=== PATIENT | female | born 1990 | race Caucasian/White ===

== ENCOUNTER 2017-04-26 09:35 | Inpatient (IN) | payer BC ==
[2017-04-26 10:30] VITALS: BMI 29.6
--- NOTE | 2017-04-26 14:10 | HP ---
Admission [facility] - [facility] Allergies/Adverse Reactions: Allergies Allergy/AdvReac Type Severity Reaction Status Date / Time No Known Allergies Allergy Verified 04/26/17 11:29 - Ebola screening Have you traveled outside of the country in the last 21 days: No Have you had contact with anyone from an Ebola affected area: No Have you been sick,other than usual withdrawal symptoms: No Patient History - Patient Medical History Hx Asthma: No Hx Chronic Obstructive Pulmonary Disease (COPD): No Hx Cardiac Disorders: Yes (Cardiomyopathy) Hx Hypertension: Yes Hx Seizures: Yes (last seizure was 1 months ago.) Hx Diabetes: No Hx Gastrointestinal Disorders: Yes (GERD) Hx Genitourinary Disorders: No Hx Sexually Transmitted Disorders: No Hx Renal Disease (ESRD): No Hx Depression: Yes Hx Suicide Attempt: Yes (Tried to hang herself at age 18 yrs old.) Hx Schizophrenia: No - Patient Surgical History Past Surgical History: Yes Other Surgical History: Tonsillectomy - PPD History Previous Implant?: Yes Documented Results: Negative w/o proof Implanted On Prior [facility] Admission?: No - Reproductive History Last Menstrual Period: 04/06/17 Patient : No - Smoking Cessation Smoking history: Current every day smoker Have you smoked in the past 12 months: Yes Aproximately how many cigarettes per day: 6 Hx Chewing Tobacco Use: No Initiated information on smoking cessation: Yes - Substances Abused Alcohol Route: Oral Frequency: Daily Amount used: 2 pints vodka Age of first use: 15 Date of Last Use: 04/25/17 vicoden/percocets Route: Oral Frequency: Daily Amount used: 2-3 pills Age of first use: 17 Date of Last Use: 04/25/17 Admission Physical Exam [facility] - Vital Signs Vital Signs: Vital Signs - 24 hr 04/26/17 10:24 Temperature 95.4 F L Pulse Rate 76 Respiratory 18 Rate Blood Pressure 109/67 Cleared for Admission [facility] - Detox or Rehab [facility] Level of Care: Medically Managed Detox Regimen/Protocol: Librium [facility] Breath Alcohol Content Breath Alcohol Content: 0 Urine Pregancy Test - Result Urine Test Results: Negative- NO Line Present Urine Drug Screen - Results Drug Screen Negative: No Urine Drug Screen Results: MTD-Methadone, TCA-Tricyclic Antidepress, OXY- Oxycodone
--- NOTE | 2017-04-26 15:17 | HP ---
CIWA Score - CIWA Score Nausea/Vomitin-No Nausea/No Vomiting Muscle Tremors: 4-Moderate,w/Arms Extend Anxiety: 4-Mod. Anxious/Guarded Agitation: 2 Paroxysmal Sweats: 3 Orientation: 0-Oriented Tacttile Disturbances: 0-None Auditory Disturbances: 2-Mild Harshness/Frighten Visual Disturbances: 3-Moderate Sensitivity Headache: 3-Moderate CIWA-Ar Total Score: 21 Admission ROS S - HPI Chief Complaint: "I am here to safely detox from Alcohol." Pt. is here to Detox from Alcohol. Allergies/Adverse Reactions: Allergies Allergy/AdvReac Type Severity Reaction Status Date / Time No Known Allergies Allergy Verified 04/26/17 11:29 History of Present Illness: Pt. is a 27 YO female here to Detox from Alcohol. This is pt.'s first Detox admission at [facility]. Pt. is a client at [facility] in [place], [place]. Longest period of sobriety: 3 years (2012 - 2015). Exam Limitations: No Limitations - Ebola screening Have you traveled outside of the country in the last 21 days: No Have you had contact with anyone from an Ebola affected area: No Have you been sick,other than usual withdrawal symptoms: No Do you have a fever: No - Review of Systems Constitutional: Chills, Diaphoresis, Fever, Loss of Appetite, Malaise, Night Sweats, Changes in sleep, Unintentional Wgt. Loss (Lost approx. 10 lbs.) EENT: reports: Tearing, Tinnitus (Bilateral ears.) Respiratory: reports: Shortness of Breath (History of HTN, Cardiomyopathy.) Cardiac: reports: Chest Pain (Intermittent (due to Cardiomyopathy). PATIENT DENIES CURRENT CHEST PAIN / TIGHTNESS.), Palpitations, Chest Tightness ( Intermittent (due to Cardiomyopathy). PATIENT DENIES CURRENT CHEST PAIN / TIGHTNESS.) GI: reports: Nausea, Poor Appetite, Vomiting, Abdominal cramping : reports: No Symptoms Reported Musculoskeletal: reports: Back Pain, Neck Pain Integumentary: reports: No Symptoms Reported Neuro: reports: Headache, Numbness (Intermittent in Bilateral Hands and Feet.), Seizure (Due Alcohol-Withdrawal; Last episode: approx. 1 month ago. Pt. was evaluated in ER at that time.), Tingling (Intermittent in Bilateral Hands and Feet.), Tremors Endocrine: reports: No Symptoms Reported Hematology: reports: Anemia Psychiatric: reports: Judgement Intact, Mood/Affect Appropiate, Orientated x3, Anxious (On meds.) Other Systems: Reviewed and Negative Patient History - Patient Medical History Hx Anemia: Yes (Takes MVI.) Hx Asthma: No Hx Chronic Obstructive Pulmonary Disease (COPD): No Hx Cancer: No Hx Cardiac Disorders: Yes (Cardiomyopathy; Enlarged Heart.) Hx Congestive Heart Failure: No Hx Hypertension: Yes (On med.) Hx Hypercholesterolemia: Yes (No meds.) Hx Pacemaker: No HX Cerebrovascular Accident: No Hx Seizures: Yes (last seizure was 1 months ago (ETOH-Related).) Hx Dementia: No Hx Diabetes: No Hx Gastrointestinal Disorders: No Hx Liver Disease: No Hx Genitourinary Disorders: No Hx Sexually Transmitted Disorders: No Hx Renal Disease (ESRD): No Hx Thyroid Disease: No Hx Human Immunodeficiency Virus (HIV): No (Last Tested: 03/2017: NEGATIVE.) Hx Hepatitis C: Yes (Diagnosed: 2013; No Treatment yet.) Hx Depression: Yes (Anxiety.) Hx Suicide Attempt: Yes (Tried to hang herself at age 18 yrs old. PATIENT DENIES CURRENT SI / HI.) Hx Bipolar Disorder: No Hx Schizophrenia: No - Patient Surgical History Past Surgical History: Yes Hx Neurologic Surgery: No Hx Cataract Extraction: No Hx Cardiac Surgery: No Hx Lung Surgery: No Hx Breast Surgery: No Hx Breast Biopsy: No Hx Abdominal Surgery: No Hx Appendectomy: No Hx Cholecystectomy: No Hx Genitourinary Surgery: No Hx Section: No Hx Orthopedic Surgery: No Hx Hysterectomy: No Other Surgical History: Tonsillectomy (Age 5) Anesthesia Reaction: No - PPD History Previous Implant?: Yes Documented Results: Negative w/o proof Implanted On Prior [facility] Admission?: No PPD to be Administered?: Yes - Reproductive History Patient is a Female of Child Bearing Age (11 -55 yrs old): Yes Last Menstrual Period: 04/06/17 Patient : No - Smoking Cessation Smoking history: Current every day smoker Have you smoked in the past 12 months: Yes Aproximately how many cigarettes per day: 6 Cigars Per Day: 0 Hx Chewing Tobacco Use: No Initiated information on smoking cessation: Yes 'Breaking Loose' booklet given: 04/26/17 (GIVEN ON UNIT.) - Substance & Tx. History Hx Alcohol Use: Yes Hx Substance Use: Yes Substance Use Type: Alcohol, Opiates Hx Substance Use Treatment: No - Substances Abused Alcohol Route: Oral Frequency: Daily Amount used: 2 pints vodka Age of first use: 15 Date of Last Use: 04/25/17 vicoden/percocets Route: Oral Frequency: Daily Amount used: Percocet: 2-3 pills (15-325 MG) Age of first use: 17 Date of Last Use: 04/25/17 Family Disease History - Family Disease History Family History: Denies Admission Physical Exam [facility] - Vital Signs Vital Signs: Vital Signs - 24 hr 04/26/17 10:24 Temperature 95.4 F L Pulse Rate 76 Respiratory 18 Rate Blood Pressure 109/67 - Physical General Appearance: Yes: Nourished, Appropriately Dressed, Moderate Distress, Tremorous, Anxious HEENTM: Yes: Hearing grossly Normal, Normocephalic, Normal Voice, JACQUELINE, Pharynx Normal Respiratory: Yes: Chest Non-Tender, Lungs Clear, No Respiratory Distress Neck: Yes: No masses,lesions,Nodules, Supple, Trachea in good position Breast: Yes: Breast Exam Deferred Cardiology: Yes: Regular Rhythm, Regular Rate, S1, S2 Abdominal: Yes: Normal Bowel Sounds, Non Tender, Flat, Soft Genitourinary: Yes: Within Normal Limits Back: Yes: Decreased Range of Motion Musculoskeletal: Yes: Gait Steady, Back pain, Joint Stiffness Extremities: Yes: Normal Range of Motion, Non-Tender, Tremors Neurological: Yes: Fully Oriented, Alert, Normal Mood/Affect, Normal Response Integumentary: Yes: Normal Color, Dry, Warm Lymphatic: Yes: Within Normal Limits - Diagnostic (1) Alcohol dependence with uncomplicated withdrawal Current Visit: Yes Status: Acute (2) Methadone maintenance therapy patient Current Visit: Yes Status: Chronic (3) Nicotine dependence Current Visit: Yes Status: Chronic Qualifiers: Nicotine product type: cigarettes Substance use status: uncomplicated Qualified Code(s): F17.210 - Nicotine dependence, cigarettes, uncomplicated (4) Hypertension Current Visit: Yes Status: Chronic Qualifiers: Hypertension type: essential hypertension Qualified Code(s): I10 - Essential (primary) hypertension (5) History of cardiomyopathy Current Visit: Yes Status: Chronic (6) History of cardiomegaly Current Visit: Yes Status: Chronic (7) Seizure due to alcohol withdrawal Current Visit: Yes Status: Chronic Qualifiers: Complication of substance-induced condition: uncomplicated Qualified Code(s): F10.230 - Alcohol dependence with withdrawal, uncomplicated (8) Hepatitis C Current Visit: Yes Status: Chronic Qualifiers: Viral hepatitis chronicity: chronic Hepatic coma status: without hepatic coma Qualified Code(s): B18.2 - Chronic viral hepatitis C (9) Hypercholesterolemia Current Visit: Yes Status: Chronic Cleared for Admission [facility] - Detox or Rehab [facility] Level of Care: Medically Managed Detox Regimen/Protocol: Valium (Patient requests Valium Detox Regimen.) [facility] Breath Alcohol Content Breath Alcohol Content: 0 Urine Pregancy Test - Result Urine Test Results: Negative- NO Line Present Urine Drug Screen - Results Drug Screen Negative: No Urine Drug Screen Results: MTD-Methadone, TCA-Tricyclic Antidepress, OXY- Oxycodone
[2017-04-26] MEDS ORDERED: P-EPHED 60MG/TRIPROLIDI 2.5MG TABLET PO PRN (15:58)
[2017-04-26] MEDS ORDERED: diphenhydrAMINE HCL 50 MG CAPSULE PO PRN (15:58)
[2017-04-26] MEDS ORDERED: LOPERAMIDE HCL 2 MG CAPSULE PO PRN (15:58)
[2017-04-26] MEDS ORDERED: MAGNESIUM CITRATE 300 ML BOTTLE PO PRN (15:58)
[2017-04-26] MEDS ORDERED: guaiFENesin/D-METHORPHAN HB 10 ML UNIT-DOSE CUPS PO PRN (15:58)
[2017-04-26] MEDS ORDERED: IBUPROFEN 400 MG TABLET (FP) PO PRN (15:58)
[2017-04-26] MEDS ORDERED: MENTHOL/PHENOL 1 EACH UD MM PRN (15:58)
[2017-04-26] MEDS ORDERED: MAGNESIUM HYDROX 2400MG/30ML ORAL SUSPENSION 30 ML CUP PO PRN (15:58)
[2017-04-26] MEDS ORDERED: NICOTINE POLACRILEX 2 MG GUM BC PRN (15:58)
[2017-04-26] MEDS ORDERED: hydrOXYzine PAMOATE 50 MG CAPSULE (FP) PO PRN (15:58)
[2017-04-26] MEDS ORDERED: ACETAMINOPHEN 325 MG TABLET (FP) PO PRN (15:58)
[2017-04-26] MEDS ORDERED: diazePAM 5 MG TABLET PO ONE (16:30)
[2017-04-26] MEDS: NICOTINE 14 MG/24 HOURS TOPICAL PATCH TD SCH (17:06)
[2017-04-26 21:12] LABS: URINE APPEARANCE CLEAR; URINE BILIRUBIN NEGATIVE (NEGATIVE); URINE BLOOD NEGATIVE (NEGATIVE); URINE COLOR COLORLESS; URINE GLUCOSE (UA) NEGATIVE (NEGATIVE); URINE KETONE NEGATIVE (NEGATIVE); URINE LEUK ESTERASE NEGATIVE (NEGATIVE); URINE NITRITE NEGATIVE (NEGATIVE); URINE PROTEIN NEGATIVE (NEGATIVE); URINE UROBILINOGEN NEGATIVE E.U./dl (0.2-1.0)
[2017-04-26] MEDS: THIAMINE HCL 100 MG TABLET (FP) PO SCH (22:10)
[2017-04-26] MEDS: diazePAM 5 MG TABLET PO SCH (22:10)
[2017-04-26] MEDS: cloNIDine HCL 0.1 MG TABLET PO SCH (22:10)
[2017-04-27] MEDS ORDERED: METHADONE HCL 40 MG DISPERSABLE TABLET ONE (05:25)
[2017-04-27] MEDS ORDERED: METHADONE HCL 10 MG TABLET ONE (05:26)
[2017-04-27] MEDS: METHADONE 160 MG, METHADONE 30 MG PO SCH (05:54)
[2017-04-27] MEDS: diazePAM 5 MG TABLET PO SCH ×3 (05:54→22:26)
[2017-04-27] MEDS ORDERED: METHADONE HCL 10 MG TABLET PO SCH (06:00)
--- NOTE | 2017-04-27 09:13 | CONSULT ---
[facility] Psychiatric Consult - Data Date of interview: 04/27/17 Admission source: [facility] Identifying data: This is 27 uyears old female with no psychiatric hospitalization history intoxicated with: Alcohol, Opioids and Nicotine Substance Abuse History: - Smoking Cessation. Smoking history: Current every day smoker. Have you smoked in the past 12 months: Yes. Aproximately how many cigarettes per day: 6. Cigars Per Day: 0. Hx Chewing Tobacco Use: No. Initiated information on smoking cessation: Yes. 'Breaking Loose' booklet given : 04/26/17 (GIVEN ON UNIT.). - Substance & Tx. History. Hx Alcohol Use: Yes. Hx Substance Use: Yes. Substance Use Type: Alcohol, Opiates. Hx Substance Use Treatment: No. - Substances Abused. Alcohol. Route: Oral. Frequency: Daily. Amount used: 2 pints vodka. Age of first use: 15. Date of Last Use: . vicoden/percocets. Route: Oral. Frequency: Daily. Amount used: Percocet: 2-3 pills (15-325 MG). Age of first use: 17. Date of Last Use: 04/25 Medical History: HepC+, Cardiomegaly history, Cardiomyopathy history, Hyperchlesterolemia, HTN, MMTP hisotry Psychiatric History: Patient reports history of depression, anxietyand insoknia , reprots taking prior to admission: Paxil 40mg poqd. Ambien 10mg pom qhs Physical/Sexual Abuse/Trauma History: Denies Additional Comment: P-axil 40mg poqd. Ambien 10mg pom qhs Mental Status Exam - Mental Status Exam Alert and Oriented to: Person Cognitive Function: Fair Patient Appearance: Unkempt Mood: Anxious Affect: Appropriate Patient Behavior: Cooperative Speech Pattern: Appropriate Voice Loudness: Mildly Soft/Quiet Thought Process: Goal Oriented Thought Disorder: Being Controlled Hallucinations: Denies Suicidal Ideation: Denies Homicidal Ideation: Denies Insight/Judgement: Fair Sleep: Difficulty falling asleep Appetite: Fair Muscle strength/Tone: Mild Hypotonicity Gait/Station: Shuffling Additional Comments: P-axil 40mg poqd. 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 Ambien 10mg pom qhs
[2017-04-27] MEDS ORDERED: CYCLOBENZAPRINE HCL 10 MG TABLET (FP) PO PRN (09:46)
--- NOTE | 2017-04-27 09:50 | PN ---
S CIWA - CIWA Score Nausea/Vomitin Muscle Tremors: 3 Anxiety: 3 Agitation: 3 Paroxysmal Sweats: 1-Minimal Palms Moist Orientation: 0-Oriented Tacttile Disturbances: 1-Very Mild Itch/Numbness Auditory Disturbances: 1-Very Mild Visual Disturbances: 1-Very Mild Sensitivity Headache: 2-Mild CIWA-Ar Total Score: 18 BHS Progress Note (SOAP) Subjective: ALERT,IRRITABLE,ANXIOUS,INTERRUPTED SLEEP,TREMOR,PAIN IN THE BODY AND BACK Objective: 04/27/17 09:48 Vital Signs Temperature 97.9 F 04/27/17 09:24 Pulse Rate 80 04/27/17 09:24 Respiratory Rate 16 04/27/17 09:24 Blood Pressure 118/72 04/27/17 09:24 O2 Sat by Pulse Oximetry (%) EKG NSR NO CHEST PAIN,NO SOB,NO DIZZINESS Laboratory Last Values Urine Color Colorless 04/26/17 20:00 Urine Appearance Clear 04/26/17 20:00 Urine pH 7.0 (5.0-8.0) 04/26/17 20:00 Ur Specific [place] 1.010 (1.005-1.025) 04/26/17 20:00 Urine Protein Negative (NEGATIVE) 04/26/17 20:00 Urine Glucose (UA) Negative (NEGATIVE) 04/26/17 20:00 Urine Ketones Negative (NEGATIVE) 04/26/17 20:00 Urine Blood Negative (NEGATIVE) 04/26/17 20:00 Urine Nitrite Negative (NEGATIVE) 04/26/17 20:00 Urine Bilirubin Negative (NEGATIVE) 04/26/17 20:00 Urine Urobilinogen Negative E.U./dl (0.2-1.0) 04/26/17 20:00 Ur Leukocyte Esterase Negative (NEGATIVE) 04/26/17 20:00 04/27/17 09:49 LABS PENDING Assessment: 04/27/17 09:49 WITHDRAWAL SYMPTOM Plan: CONTINUE DETOX
[2017-04-27 10:04] LABS: MCH 31.6 pg (25.7-33.7); MCHC 33.6 g/dl (32.0-36.0); MEAN CELL VOLUME 93.9 fl (80-96); MEAN PLT VOLUME 8.6 fl (7.5-11.1); PLATELET COUNT 210 K/MM3 (134-434); RDW 14.3 % (11.6-15.6); WHITE BLOOD COUNT 8.6 K/mm3 (4.0-10.0)
[2017-04-27] MEDS: PRENATAL VITAMINS W/ FOLIC ACID TABLET (FP) PO SCH (10:07)
[2017-04-27] MEDS: diazePAM 5 MG TABLET PO PRN ×2 (10:07→18:03)
[2017-04-27] MEDS: PARoxetine HCL 20 MG TABLET (FP) PO SCH (10:07)
[2017-04-27] MEDS: cloNIDine HCL 0.1 MG TABLET PO SCH ×2 (10:07→22:26)
[2017-04-27 10:08] LABS: ALBUMIN 3.8 g/dl (3.4-5.0); GLUCOSE,RANDOM 139 mg/dL (74-106); SGOT/AST 39 U/L (15-37); SGPT/ALT 45 U/L (12-78)
[2017-04-27] MEDS: NICOTINE 14 MG/24 HOURS TOPICAL PATCH TD SCH (10:09)
[2017-04-27 10:10] LABS: ALK PHOS 86 U/L (45-117); ANION GAP 6 (8-16); BILIRUBIN,TOTAL 0.6 mg/dL (0.2-1.0); CALCIUM 9.4 mg/dL (8.5-10.1); CO2 31 mmol/L (21-32); COCKROFT - GAULT 109.8795; CREATININE 0.9 mg/dL (0.55-1.02); TOT PROT 7.2 g/dl (6.4-8.2)
--- NOTE | 2017-04-27 10:36 | EKG ---
Test Reason : Blood Pressure : / mmHG Vent. Rate : 074 BPM Atrial Rate : 074 BPM P-R Int : 156 ms QRS Dur : 088 ms QT Int : 422 ms P-R-T Axes : 056 009 026 degrees QTc Int : 468 ms NORMAL SINUS RHYTHM POSSIBLE LEFT ATRIAL ENLARGEMENT BORDERLINE ECG NO PREVIOUS ECGS AVAILABLE Confirmed by MYA BILLS, RAVINDER ([id number]) on 04/27/2017 10:36:43 AM Referred By: Russ Ellis Confirmed By:RAVINDER ROQUE MD
[2017-04-27] MEDS: MAG HYDROX/AL HYDROX/SIMETH 30 ML UNIT-DOSE CUP PO PRN (17:36)
[2017-04-27] MEDS: THIAMINE HCL 100 MG TABLET (FP) PO SCH (22:26)
[2017-04-27] MEDS: ZOLPIDEM TARTRATE 10 MG TABLET (PARK CARE ONLY) PO PRN (22:26)
[2017-04-28] MEDS ORDERED: METHADONE HCL 40 MG DISPERSABLE TABLET ONE (03:42)
[2017-04-28] MEDS ORDERED: METHADONE HCL 10 MG TABLET ONE (03:43)
[2017-04-28] MEDS: METHADONE 160 MG, METHADONE 30 MG PO SCH (05:18)
[2017-04-28] MEDS: diazePAM 5 MG TABLET PO PRN ×3 (07:39→17:49)
--- NOTE | 2017-04-28 09:40 | PN ---
S CIWA - CIWA Score Nausea/Vomitin Muscle Tremors: 3 Anxiety: 3 Agitation: 3 Paroxysmal Sweats: 1-Minimal Palms Moist Orientation: 0-Oriented Tacttile Disturbances: 1-Very Mild Itch/Numbness Auditory Disturbances: 1-Very Mild Visual Disturbances: 1-Very Mild Sensitivity Headache: 2-Mild CIWA-Ar Total Score: 18 S Progress Note (SOAP) Subjective: alert,irritable,anxious,interrupted sleep,tremor Objective: 04/28/17 09:38 Vital Signs Temperature 96.6 F L 04/28/17 06:00 Pulse Rate 94 H 04/28/17 06:00 Respiratory Rate 18 04/28/17 06:00 Blood Pressure 135/83 04/28/17 06:00 O2 Sat by Pulse Oximetry (%) Laboratory Last Values WBC 8.6 K/mm3 (4.0-10.0) 04/27/17 06:00 RBC 3.92 M/mm3 (3.60-5.2) 04/27/17 06:00 Hgb 12.4 GM/dL (10.7-15.3) 04/27/17 06:00 Hct 36.8 % (32.4-45.2) 04/27/17 06:00 MCV 93.9 fl (80-96) 04/27/17 06:00 MCHC 33.6 g/dl (32.0-36.0) 04/27/17 06:00 RDW 14.3 % (11.6-15.6) 04/27/17 06:00 Plt Count 210 K/MM3 (134-434) 04/27/17 06:00 MPV 8.6 fl (7.5-11.1) 04/27/17 06:00 Sodium 141 mmol/L (136-145) 04/27/17 06:00 Potassium 4.3 mmol/L (3.5-5.1) 04/27/17 06:00 Chloride 104 mmol/L (98-107) 04/27/17 06:00 Carbon Dioxide 31 mmol/L (21-32) 04/27/17 06:00 Anion Gap 6 (8-16) L 04/27/17 06:00 BUN 13 mg/dL (7-18) 04/27/17 06:00 Creatinine 0.9 mg/dL (0.55-1.02) 04/27/17 06:00 Creat Clearance w eGFR > 60 (>60) 04/27/17 06:00 Random Glucose 139 mg/dL (74-106) H 04/27/17 06:00 Calcium 9.4 mg/dL (8.5-10.1) 04/27/17 06:00 Total Bilirubin 0.6 mg/dL (0.2-1.0) 04/27/17 06:00 AST 39 U/L (15-37) H 04/27/17 06:00 ALT 45 U/L (12-78) 04/27/17 06:00 Alkaline Phosphatase 86 U/L (45-117) 04/27/17 06:00 Total Protein 7.2 g/dl (6.4-8.2) 04/27/17 06:00 Albumin 3.8 g/dl (3.4-5.0) 04/27/17 06:00 Urine Color Colorless 04/26/17 20:00 Urine Appearance Clear 04/26/17 20:00 Urine pH 7.0 (5.0-8.0) 04/26/17 20:00 Ur Specific [place] 1.010 (1.005-1.025) 04/26/17 20:00 Urine Protein Negative (NEGATIVE) 04/26/17 20:00 Urine Glucose (UA) Negative (NEGATIVE) 04/26/17 20:00 Urine Ketones Negative (NEGATIVE) 04/26/17 20:00 Urine Blood Negative (NEGATIVE) 04/26/17 20:00 Urine Nitrite Negative (NEGATIVE) 04/26/17 20:00 Urine Bilirubin Negative (NEGATIVE) 04/26/17 20:00 Urine Urobilinogen Negative E.U./dl (0.2-1.0) 04/26/17 20:00 Ur Leukocyte Esterase Negative (NEGATIVE) 04/26/17 20:00 RPR Titer Nonreactive (NONREACTIVE) 04/27/17 06:00 Assessment: 04/28/17 09:39 withdrawal symptom Plan: continue detox,initial glucose 139,fasting glucose in am
[2017-04-28] MEDS: PARoxetine HCL 20 MG TABLET (FP) PO SCH (10:14)
[2017-04-28] MEDS: PRENATAL VITAMINS W/ FOLIC ACID TABLET (FP) PO SCH (10:14)
[2017-04-28] MEDS: cloNIDine HCL 0.1 MG TABLET PO SCH ×2 (10:14→22:10)
[2017-04-28] MEDS: NICOTINE 14 MG/24 HOURS TOPICAL PATCH TD SCH (10:15)
[2017-04-28] MEDS: diazePAM 5 MG TABLET PO SCH ×2 (10:15→22:10)
[2017-04-28] MEDS: ZOLPIDEM TARTRATE 10 MG TABLET (PARK CARE ONLY) PO PRN (22:10)
[2017-04-28] MEDS: THIAMINE HCL 100 MG TABLET (FP) PO SCH (22:10)
[2017-04-29] MEDS ORDERED: METHADONE HCL 40 MG DISPERSABLE TABLET ONE (04:16)
[2017-04-29] MEDS ORDERED: METHADONE HCL 10 MG TABLET ONE (04:17)
[2017-04-29] MEDS: diazePAM 5 MG TABLET PO PRN ×2 (05:15→13:06)
[2017-04-29] MEDS: METHADONE 160 MG, METHADONE 30 MG PO SCH (05:35)
[2017-04-29] MEDS: cloNIDine HCL 0.1 MG TABLET PO SCH ×2 (09:39→22:59)
[2017-04-29] MEDS: PRENATAL VITAMINS W/ FOLIC ACID TABLET (FP) PO SCH (09:39)
[2017-04-29] MEDS: NICOTINE 14 MG/24 HOURS TOPICAL PATCH TD SCH (09:40)
[2017-04-29] MEDS: PARoxetine HCL 20 MG TABLET (FP) PO SCH (09:41)
[2017-04-29] MEDS: diazePAM 5 MG TABLET PO SCH ×2 (09:41→22:07)
--- NOTE | 2017-04-29 11:24 | PN ---
S Progress Note (SOAP) Subjective: ALERT,IRRITABLE,INTERRUPTED SLEEP Objective: 04/29/17 11:23 Vital Signs Temperature 97.3 F L 04/29/17 06:06 Pulse Rate 68 04/29/17 06:06 Respiratory Rate 18 04/29/17 06:06 Blood Pressure 123/66 04/29/17 06:06 O2 Sat by Pulse Oximetry (%) Assessment: 04/29/17 11:23 WITHDRAWAL SYMPTOM Plan: CONTINUE DETOX,DISCHARGE IN AM
[2017-04-29] MEDS: MAG HYDROX/AL HYDROX/SIMETH 30 ML UNIT-DOSE CUP PO PRN (18:05)
[2017-04-29] MEDS: ZOLPIDEM TARTRATE 10 MG TABLET (PARK CARE ONLY) PO PRN (22:07)
[2017-04-29] MEDS: THIAMINE HCL 100 MG TABLET (FP) PO SCH (22:07)
[2017-04-30] MEDS ORDERED: METHADONE HCL 40 MG DISPERSABLE TABLET ONE (04:59)
[2017-04-30] MEDS ORDERED: METHADONE HCL 10 MG TABLET ONE (05:00)
[2017-04-30] MEDS: METHADONE 160 MG, METHADONE 30 MG PO SCH (05:16)
--- NOTE | 2017-04-30 08:08 | PN ---
B[facility] Progress Note (SOAP) Subjective: ALERT,NO COMPLAINT Vital Signs Temperature 97.2 F L 04/30/17 06:00 Pulse Rate 71 04/30/17 06:00 Respiratory Rate 18 04/30/17 06:00 Blood Pressure 142/80 04/30/17 06:00 O2 Sat by Pulse Oximetry (%) Objective: 04/30/17 08:07 Vital Signs Temperature 97.2 F L 04/30/17 06:00 Pulse Rate 71 04/30/17 06:00 Respiratory Rate 18 04/30/17 06:00 Blood Pressure 142/80 04/30/17 06:00 O2 Sat by Pulse Oximetry (%) Assessment: 04/30/17 08:07 DETOX COMPLETED,NO WITHDRAWAL SYMPTOM
--- NOTE | 2017-04-30 08:12 | DS ---
[facility] Detox Discharge Summary Admission Date: 04/26/17 Discharge Date: 04/30/17 - History Present History: Alcohol Dependence, MMTP Pertinent Past History: HYPERTENSION HISTORY OF CARDIOMYOPATHY HISTORY OF CARDIOMEGALY SEIZURE ALCOHOL RELATED HEPATITIS C HPERCHOLESTROLEMIA - Physical Exam Results Vital Signs: Vital Signs Temperature 97.2 F L 04/30/17 06:00 Pulse Rate 71 04/30/17 06:00 Respiratory Rate 18 04/30/17 06:00 Blood Pressure 142/80 04/30/17 06:00 O2 Sat by Pulse Oximetry (%) Pertinent Admission Physical Exam Findings: WITHDRAWAL SYMPTOM - Treatment Hospital Course: Detox Protocol Followed, Detoxed Safely, Responded well, Discharged Condition Good Patient has Accepted a Rehab Referral to: [facility] - Medication Discharge Medications: Ambulatory Orders Clonidine HCl [Catapres -] 0.2 mg PO BID 04/26/17 Gabapentin [Neurontin -] 100 mg PO Q8H 04/26/17 Mirtazapine [Remeron -] 15 mg PO HS 04/26/17 Paroxetine HCl [Paxil -] 60 mg PO DAILY 04/26/17 Paroxetine HCl [Paxil -] 40 mg PO DAILY #30 tablet 04/27/17 - Diagnosis (1) Alcohol dependence with uncomplicated withdrawal Current Visit: Yes Status: Acute (2) Hepatitis C Current Visit: Yes Status: Chronic Qualifiers: Viral hepatitis chronicity: chronic Hepatic coma status: without hepatic coma Qualified Code(s): B18.2 - Chronic viral hepatitis C (3) History of cardiomegaly Current Visit: Yes Status: Chronic (4) History of cardiomyopathy Current Visit: Yes Status: Chronic (5) Hypercholesterolemia Current Visit: Yes Status: Chronic (6) Hypertension Current Visit: Yes Status: Chronic Qualifiers: Hypertension type: essential hypertension Qualified Code(s): I10 - Essential (primary) hypertension (7) Methadone maintenance therapy patient Current Visit: Yes Status: Chronic (8) Nicotine dependence Current Visit: Yes Status: Chronic Qualifiers: Nicotine product type: cigarettes Substance use status: uncomplicated Qualified Code(s): F17.210 - Nicotine dependence, cigarettes, uncomplicated (9) Seizure due to alcohol withdrawal Current Visit: Yes Status: Chronic Qualifiers: Complication of substance-induced condition: uncomplicated Qualified Code(s): F10.230 - Alcohol dependence with withdrawal, uncomplicated - AMA Did Patient Leave Against Medical Advice: No
[2017-04-30 09:45] VITALS: BP 132/90; PULSE 121; TEMP 97.9
[2017-04-30] MEDS ORDERED: diazePAM 5 MG TABLET PO SCH (10:00)
[2017-04-30] MEDS: PARoxetine HCL 20 MG TABLET (FP) PO SCH (10:10)
[2017-04-30] MEDS: cloNIDine HCL 0.1 MG TABLET PO SCH (10:12)
[2017-04-30] MEDS: PRENATAL VITAMINS W/ FOLIC ACID TABLET (FP) PO SCH (10:12)
[2017-04-30] MEDS ORDERED: cloNIDine HCL 0.1 MG TABLET ONE (10:13)
[2017-04-30] MEDS: NICOTINE 14 MG/24 HOURS TOPICAL PATCH TD SCH (10:14)
== END 2017-04-30 10:30 | disposition home or self-care (01) | DRG 773 ==
LOC: YASAS 09:35 → Y6N 12:58
PROVIDERS: ADMIT Internal Medicine; ATTEND Internal Medicine
PROC: HZ2ZZZZ Detoxification Services for Substance Abuse Treatment (ICD-10-PCS; principal; 2017-04-26)
DX: F10.230 Alcohol dependence with withdrawal, uncomplicated (principal); F11.20 Opioid dependence, uncomplicated; F17.210 Nicotine dependence, cigarettes, uncomplicated; F19.24 Other psychoactive substance dependence with psychoactive substance-induced mood disorder; B18.2 Chronic viral hepatitis C; D64.9 Anemia, unspecified; E78.00 Pure hypercholesterolemia, unspecified; I10 Essential (primary) hypertension; Z86.79 Personal history of other diseases of the circulatory system; Z86.69 Personal history of other diseases of the nervous system and sense organs; Z91.5 Personal history of self-harm
CPT/HCPCS: 36415; 80053; 81003; 82947; 85027; 86593; 93005; 93010